=== PATIENT | male | born 1970 | race Caucasian/White ===

== ENCOUNTER 2019-11-05 02:29 | Outpatient (CLI) | payer BC, SELFPAY ==
[2019-11-05 18:24] LABS: SARS-CoV-2 RNA PCR Negative
== END 2019-11-05 02:30 | disposition home or self-care (01) ==
LOC: ANHCOVIDDT 02:29
PROVIDERS: PCP Physician Assistant; Visit Provider Internal Medicine Gastroenterology
DX: Z20.828 Contact with and (suspected) exposure to other viral communicable diseases (principal)
CPT/HCPCS: 87635; C9803; U0003

== ENCOUNTER 2019-11-07 00:22 | Day surgery (SDC) | payer BC, SELFPAY ==
[2019-11-03 10:30] VITALS: BMI 30.7
--- NOTE | 2019-11-06 14:32 | WPDANESEPP ---
Anes - Eval Pre Procedure Procedure: Operation Date: 11/07/19 10:00 Proposed Procedures p Colonoscopy - Donavan Simpson MD Date/Time: 11/06/19 14:32 Pre Op Diagnosis: IBS, abd pain, blood in stool Patient Data Age: 48 Gender: M Height: 1.8 m Weight: 100 kg Allergies Allergy/AdvReac Type Severity Reaction Status Date / Time Penicillins Allergy Unknown Verified 11/03/19 10:29 Home Medications Medication Instructions Recorded Confirmed Type lisdexamfetamine [Vyvanse] 20 mg PO DAILY 11/03/19 11/03/19 History Patient hx anesthesia problems: none Family hx anesthesia problems: none PMF Past Medical History Medical History (Updated 11/06/19 @ 14:32 by Heaven Kelly CRNA) ADHD Social History Social History Smoking status: Never smoker Drinks per week: 5 Substance use: never Substance use type: does not use Spiritual care concerns: No Exam Day of Procedure 11/06/19 14:32
[2019-11-07 09:11] VITALS: BP 133/89; PULSE 92; RESP 18; TEMP 36.3; O2SAT 96; BMI 30.9
[2019-11-07] MEDS: LACTATED RINGERS 1,000 ML 150 ML IV CONT (09:25)
--- NOTE | 2019-11-07 09:49 | WPDGICN ---
Assessment and Plan Assessment and plan (1) IBS (irritable bowel syndrome): Code(s): K58.9 - Irritable bowel syndrome without diarrhea Status: Acute Assessment and Plan: Long history of irritable bowel syndrome. Plan is for patient to start fiber supplements on a daily basis. A colonoscopy is recommended because of ongoing symptoms. This will be performed today. (2) Rectal bleeding: Code(s): K62.5 - Hemorrhage of anus and rectum Status: Acute Assessment and Plan: Patient has had rectal bleeding intermittently. Agree with fiber supplements. To help control bowel movements colonoscopy will be performed today to evaluate more thoroughly. GI Consult Note Consult date/time: 11/07/19 09:49 HPI: Dre Langston is a 48 year old male Seen in evaluation at the request of Tasneem Vaz. patient has a history of irritable bowel syndrome for several years. He states he will have low back pain that improves after a bowel movement. He has other complaints of bloating occasionally irregular stools. On occasion will notice bright red blood per rectum with wiping. He has begun at dietary elimination diet with some success. He states when he takes fiber his abdominal discomfort improves. Family history is noncontributory. Patient presents today for colonoscopy because of ongoing abdominal symptoms. [facility] Past Medical History Medical History ADHD Social History Social History Smoking status: Never smoker Drinks per week: 5 Alcohol use details: BEER Substance use: never Substance use type: does not use Living arrangements: with family Spiritual care concerns: No Meds Home Medications and Allergies Home Medications Medication Instructions Recorded Confirmed Type lisdexamfetamine [Vyvanse] 20 mg PO DAILY 11/03/19 11/07/19 History Allergies Allergy/AdvReac Type Severity Reaction Status Date / Time Penicillins Allergy Unknown Verified 11/07/19 09:10 Vital Signs Vital Signs - 24 hr 11/07/19 09:11 Temperature 97.4 F L Pulse Rate 92 Respiratory Rate 18 Blood Pressure 133/89 Pulse Oximetry 96 Exam Narrative: Exam Narrative: Physical exam reveals patient to be alert. Vital signs stable. HEENT exam unremarkable. Lungs are clear to auscultation and percussion. Heart is without murmur or extra sounds. Abdominal exam bowel sounds are present soft nontender with no organomegaly. Digital external rectal exam is normal.
--- NOTE | 2019-11-07 10:21 | P.PNAN_ITS ---
Anes - Initial Pre Proc Eval Procedure: Operation Date: 11/07/19 10:00 Proposed Procedures p Colonoscopy - Donavan Simpson MD Date/Time: 11/07/19 10:21 Surgeon: Donavan Simpson MD Pre Op Diagnosis: IBS, abd pain, blood in stool Patient Data Age: 48 Gender: M Height: 5 ft 11 in Weight: 100.8 kg Last Vital Signs Temp 97.4 F L 11/07/19 09:11 Pulse 92 11/07/19 09:11 Resp 18 11/07/19 09:11 BP 133/89 11/07/19 09:11 Pulse Ox 96 11/07/19 09:11 Allergies Allergy/AdvReac Type Severity Reaction Status Date / Time Penicillins Allergy Unknown Verified 11/07/19 09:10 Home Medications Medication Instructions Recorded Confirmed Type lisdexamfetamine [Vyvanse] 20 mg PO DAILY 11/03/19 11/07/19 History Patient hx anesthesia problems: none Family hx anesthesia problems: none [facility] Past Medical History Medical History (Updated 11/07/19 @ 10:21 by Jw Noriega MD) ADHD GERD (gastroesophageal reflux disease) Social History Social History Smoking status: Never smoker Drinks per week: 5 Alcohol use details: BEER Substance use: never Substance use type: does not use Living arrangements: with family Spiritual care concerns: No Anes - Eval Final PreProcedure Day of Procedure 11/07/19 10:21 Patient weight: overweight Heart: regular rate and rhythm Lungs: clear to auscultation Airway: Mallampati scale class II Neurological: alert and oriented Last oral intake: >/= 8 hours ASA classification: II Emergent: no Anesthetic plan: proceed Anesthesia type and monitoring: general GIVS and standard monitoring Informed Consent: The patient's anesthetic plan and its attendant risks and benefits were discussed with the patient/family/POA. Questions were solicited and answers provided to the satisfaction of the patient/family/POA.
[2019-11-07 10:48] VITALS: BP 139/94; PULSE 72; RESP 16; O2SAT 96
[2019-11-07 10:58] VITALS: BP 129/83; PULSE 63; RESP 16; O2SAT 99
[2019-11-07 11:08] VITALS: BP 131/90; PULSE 68; RESP 16; O2SAT 100
== END 2019-11-07 11:15 | disposition home or self-care (01) ==
PROVIDERS: PCP Physician Assistant; Visit Provider Internal Medicine Gastroenterology
PROC: 0DJD8ZZ Inspection of Lower Intestinal Tract, Via Natural or Artificial Opening Endoscopic (ICD-10-PCS; CPT 45378; principal; 2019-11-07 10:00)
DX: K58.9 Irritable bowel syndrome, unspecified (principal); K62.5 Hemorrhage of anus and rectum; K64.8 Other hemorrhoids; F90.9 Attention-deficit hyperactivity disorder, unspecified type
CPT/HCPCS: 45378; J2704; J7120